=== PATIENT | female | born 1975 | race Caucasian/White ===

== ENCOUNTER → 2018-08-15 | Outpatient (CLI) | payer OTHER ==
[~2018-08-15] MED LIST: ABAT250V; ACET325; AMIT50; AMOX500 PO; ASPI325; ATIVAN PO; ATOM10; AZIT100SU; AZIT250 PO; Allergy Medicat25 MG PO; BENADRYL 25MG; BENZ1 PO; BENZ2 PO; CEPH500 PO; CLON.1 PO; CLON.2; CLON.5; CODACE30 PO; CODGUAEL PO; COGENTIN; CRUTCH4 USE; CYCL10 PO; DEPAKOTE PO; DIPH50 PO; DOCU100 PO; DOXY100; DOXY100 PO; FAMO20 PO; FLUO20; FLUP1; GAS RELIEF PO; GREEN TEA; HALO1; HALO5 PO; HYDACE25S PR; HYDACE5 PO; HYDACE7.5; HYDACE7.5 PO; HYDCHLSU PO; HYDCOR2.5C PR; HYDHCL25 PO; HYDPAM50 PO; HYOS.125 SL; Haloperidol2 MG PO; IBUP100S; IBUP200; IBUP600; IBUP800 PO; INVEGA SUS234 MG/1.5 IM; LAMICTAL 200 MG; LAMO25; LITH300CA; LORA1 PO; Lamotrigine100 MG; METR500 PO; MIRALAX17 GM; MIRT15ST; NAPR500 PO; NEFAZODONE; NICO21TP; NICOTINE LOZENGE2 MG; NITR100CA PO; OLAN10A MM; OMEPRAZOLE MAGN20 MG PO; ONDA4 PO; ONDA4ODT; ONDA4ODT MM; OXYACE5T PO; Omeprazole20 M1; PALI3TAB; PHENA100 PO; PRAZ1 PO; PRAZ2 PO; PROACE100 PO; PROM25 PO; PROP20; QUET200; QUET200 PO; QUET300; RANI150 PO; RXNAPNA550 PO; RXOXYACE PO; RXPROACE PO; SAPHRIS10 MG SL; SEROQUEL; SIME40L; SULTRIDS PO; TAMS.4ER; Trileptal300 MG PO; URICALM; VENL37.5; VENL75; ZIPR20 PO; ZIPR60; ZYPREXA; Zoloft25 MG PO; [UNRECOGNIZED DRUG - REMARK]
== END | disposition home or self-care (01) ==
LOC: LAB EV 16:55 → LAB SHORT 16:55
DX: N39.0 Urinary tract infection, site not specified (principal)
CPT/HCPCS: 87077; 87086; 87186

== ENCOUNTER → 2019-06-12 | Outpatient (CLI) | payer OTHER ==
[~2019-06-12] MED LIST changes: +PROP10
== END | disposition home or self-care (01) ==
LOC: LAB EV 11:07 → LAB SHORT 11:07
DX: N39.0 Urinary tract infection, site not specified (principal)
CPT/HCPCS: 87086

== ENCOUNTER 2021-07-29 09:18 | Emergency (ER) | payer OTHER ==
[~2021-07-29] VITALS: Ht 165.1 cm; Wt 95.2 kg
[~2021-07-29 09:18] MED LIST changes: +INVEGA PO; +Oxybutynin Chlor5 M1 PO; +PRAZOSIN HCL1 M2 PO
[2021-07-29] MEDS ORDERED: NEURONTIN300 MG PO (09:33)
[2021-07-29] MEDS ORDERED: ZALE10 PO (09:33)
[2021-07-29] MEDS ORDERED: ATORVASTATIN CA20 MG PO (09:34)
[2021-07-29] MEDS ORDERED: METFORMIN HCL500 M2 PO (09:34)
[2021-07-29] MEDS ORDERED: PANTOPRAZOLE SO40 M2 PO (09:35)
[2021-07-29 09:58] LABS: BASOPHILS ABSOLUTE AUTO 0.04 K/mm3 (0.00-0.23); BASOPHILS PERCENT AUTO 0 % (0-2); EOSINOPHILS ABSOLUTE AUTO 0.01 K/mm3 (0.00-0.68); EOSINOPHILS PERCENT AUTO 0 % (0-6); Hematocrit 45.1 % (33.0-51.0); Hemoglobin 15.9 g/dL (11.5-16.0); IMMATURE GRAN ABSOLUTE AUTO 0.06 K/mm3 (0.00-0.10); IMMATURE GRAN PERCENT AUTO 1 % (0-1); LYMPHOCYTES ABSOLUTE AUTO 2.07 K/mm3 (0.84-5.20); LYMPHOCYTES PERCENT AUTO 18 % (21-46); MONOCYTES ABSOLUTE AUTO 0.66 K/mm3 (0.16-1.47); MONOCYTES PERCENT AUTO 6 % (4-13); Mean Corpuscular HGB 30.9 pg (26.0-34.0); Mean Corpuscular HGB Conc 35.3 g/dL (31.5-36.5); Mean Corpuscular Volume 88 fL (80-100); NEUTROPHILS ABSOLUTE AUTO 8.64 K/mm3 (1.96-9.15); NEUTROPHILS PERCENT AUTO 75 % (41-73); Platelet Count 260 K/mm3 (150-400); RDW Coefficient Variation 13.2 % (11.7-14.2); RDW Standard Deviation 42.8 fL (35.1-46.3); Red Blood Cell Count 5.14 M/mm3 (3.80-5.20); White Blood Cell Count 11.48 K/mm3 (4.00-11.30)
[2021-07-29 10:16] LABS: Alanine Aminotransfer (ALT/SGP 26 U/L (12-78); Albumin, Blood 3.6 g/dL (3.4-5.0); Albumin/Globulin Ratio 0.8 (0.8-1.8); Alk Phos 97 U/L (50-136); Anion Gap 10 mmol/L (6-16); Aspartate Aminotrans (AST/SGOT 23 U/L (12-37); Bilirubin, Total 0.4 mg/dL (0.1-1.0); Blood Urea Nitrogen 5 mg/dL (8-24); Bun/Creatinine Ratio 7.7 (12.0-20.0); CO2, Blood 19 mmol/L (21-32); Calcium, Blood 9.9 mg/dL (8.5-10.1); Chloride, Blood 111 mmol/L (98-108); Creatinine, Blood 0.65 mg/dL (0.40-1.00); Globulin, Blood 4.5 g/dL (2.2-4.0); Glomerular Filtration Rate >60 (60-); Glucose, Blood 153 mg/dL (70-99); Potassium, Blood 3.5 mmol/L (3.5-5.5); Sodium, Blood 140 mmol/L (136-145); Total Protein, Blood 8.1 g/dL (6.4-8.2)
[2021-07-29 11:22] LABS: Influenza A Negative (NEGATIVE); Influenza B Negative (NEGATIVE)
[2021-07-29 11:53] LABS: Source, Urine Clean Catch
[2021-07-29 12:00] LABS: Bilirubin, Urine Neg (Neg); Blood, Urine Neg (Neg); Glucose Qualitative, Urine Neg (Neg); Ketones, Urine 1+ (Neg); Leukocyte Esterase, Urine 1+ (Neg); Nitrite, Urine Neg (Neg); Protein, Urine 1+ (Neg); Urobilinogen, Urine NORM (Normal)
[2021-07-29 12:11] LABS: Appearance, Urine Hazy (Clear); Bacteria Mod /hpf; Color, Urine Yellow (P-Yellow); Red Blood Cells, Urine Not Seen /hpf (0-2); Squamous Epithelial Cells Few /hpf (Few)
[2021-07-29 12:12] LABS: Mucus Light (0-Heavy)
[2021-07-29] MEDS ORDERED: AMOCLA875 PO (13:27)
[2021-07-29] MEDS ORDERED: ONDA4ODT MM (13:27)
== END 2021-07-29 13:53 | disposition home or self-care (01) ==
LOC: ER 09:18
PROVIDERS: Emergency Medicine
DX: J18.9 Pneumonia, unspecified organism (principal); R11.2 Nausea with vomiting, unspecified; F17.210 Nicotine dependence, cigarettes, uncomplicated; Z88.2 Allergy status to sulfonamides; Z88.8 Allergy status to other drugs, medicaments and biological substances; Z79.899 Other long term (current) drug therapy
CPT/HCPCS: 36415; 71045; 80053; 81001; 85025; 87077; 87086; 87186; 87804; 96374; 96375; 99284-25; A9270; J1885; J2765; J7030

== ENCOUNTER → 2022-03-03 | Outpatient (CLI) | payer OTHER ==
[~2022-03-03] MED LIST changes: +AMOCLA875 PO; +ATORVASTATIN CA20 MG PO; +METFORMIN HCL500 M2 PO; +NEURONTIN300 MG PO; +PANTOPRAZOLE SO40 M2 PO; +ZALE10 PO
== END | disposition home or self-care (01) ==
LOC: LAB SHORT 15:15 → LAB 15:15
DX: N39.0 Urinary tract infection, site not specified (principal); B96.29 Other Escherichia coli [E. coli] as the cause of diseases classified elsewhere; Z16.12 Extended spectrum beta lactamase (ESBL) resistance
CPT/HCPCS: 87086

== ENCOUNTER → 2023-03-16 | Outpatient (CLI) | payer OTHER | END | disposition home or self-care (01) | LOC: LAB SHORT 16:47 → LAB 16:47 | DX: R30.0 Dysuria (principal) | CPT/HCPCS: 87077; 87086; 87186 ==

== ENCOUNTER 2024-08-01 12:49 | Observation (INO) | payer OTHER ==
[~2024-08-01] VITALS: Ht 165.1 cm; Wt 88.0 kg
[2024-08-01] MEDS ORDERED: NS 1,000 ML IV SCH ×2 (14:25→18:20)
[2024-08-01 14:35] LABS: BASOPHILS ABSOLUTE AUTO 0.05 K/mm3 (0.00-0.23); BASOPHILS PERCENT AUTO 0 % (0-2); EOSINOPHILS ABSOLUTE AUTO 0.07 K/mm3 (0.00-0.68); EOSINOPHILS PERCENT AUTO 1 % (0-6); Hematocrit 42.2 % (33.0-51.0); Hemoglobin 14.3 g/dL (11.5-16.0); IMMATURE GRAN ABSOLUTE AUTO 0.09 K/mm3 (0.00-0.10); IMMATURE GRAN PERCENT AUTO 1 % (0-1); LYMPHOCYTES ABSOLUTE AUTO 1.69 K/mm3 (0.84-5.20); LYMPHOCYTES PERCENT AUTO 15 % (21-46); MONOCYTES ABSOLUTE AUTO 0.72 K/mm3 (0.16-1.47); MONOCYTES PERCENT AUTO 6 % (4-13); Mean Corpuscular HGB 29.9 pg (26.0-34.0); Mean Corpuscular HGB Conc 33.9 g/dL (31.5-36.5); Mean Corpuscular Volume 88 fL (80-100); Mean Platelet Volume 9.6 fL (9.1-12.4); NEUTROPHILS ABSOLUTE AUTO 8.93 K/mm3 (1.96-9.15); NEUTROPHILS PERCENT AUTO 77 % (41-73); Platelet Count 255 K/mm3 (150-400); RDW Coefficient Variation 13.8 % (11.7-14.2); RDW Standard Deviation 44.8 fL (35.1-46.3); Red Blood Cell Count 4.79 M/mm3 (3.80-5.20); White Blood Cell Count 11.55 K/mm3 (4.00-11.30)
[2024-08-01 14:53] LABS: Alanine Aminotransfer (ALT/SGP 15 U/L (12-78); Albumin, Blood 3.9 g/dL (3.4-5.0); Albumin/Globulin Ratio 1.1 (0.8-1.8); Alk Phos 94 U/L (50-136); Anion Gap 11 mmol/L (3-11); Aspartate Aminotrans (AST/SGOT 14 U/L (12-37); Bilirubin, Total 0.3 mg/dL (0.1-1.0); Blood Urea Nitrogen 2 mg/dL (8-24); Bun/Creatinine Ratio 2.6 (12.0-20.0); CO2, Blood 24 mmol/L (21-32); Calcium, Blood 9.5 mg/dL (8.5-10.1); Chloride, Blood 104 mmol/L (98-108); Creatinine, Blood 0.78 mg/dL (0.40-1.00); Ethanol (Alcohol), Blood, Med <3 mg/dL; Globulin, Blood 3.5 g/dL (2.2-4.0); Glomerular Filtration Rate 94 (60-); Glucose, Blood 117 mg/dL (70-99); Potassium, Blood 4.1 mmol/L (3.5-5.5); Sodium, Blood 135 mmol/L (136-145); Total Protein, Blood 7.4 g/dL (6.4-8.2)
[2024-08-01 14:57] LABS: U Amphetamine Screen Not Detected; U Barbituate Screen Not Detected; U Benzodiazapine Screen DETECTED; U Buprenorphine Screen Not Detected; U Cannabinoids Screen Not Detected; U Cocaine Screen Not Detected; U Methadone Screen Not Detected; U Methamphetamine Screen Not Detected; U Opiates Screen Not Detected; U Oxycodone Screen Not Detected; U Phencyclidine Screen Not Detected
[2024-08-01 17:59] LABS: PCO2 Arterial 42.5 mmHg (35-45); PO2 Arterial 80.1 mmHg (80-100); pH Blood Arterial 7.37 (7.35-7.45)
[2024-08-01] MEDS ORDERED: Ondansetron HCl 2 MG / ML 2ML Vial IV PRN (18:25)
[2024-08-01 18:53] LABS: Source, Urine Clean Catch
[2024-08-01 18:55] LABS: Adenovirus Not Detected (NOT DETECT); Bordetella pertussis Not Detected (NOT DETECT); Chlamydophila pneumoniae Not Detected (NOT DETECT); Coronavirus 229E Not Detected (NOT DETECT); Coronavirus HKU1 Not Detected (NOT DETECT); Coronavirus NL63 Not Detected (NOT DETECT); Coronavirus OC43 Not Detected (NOT DETECT); Human Metapneumovirus Not Detected (NOT DETECT); Human Rhinovirus/Enterovirus Detected (NOT DETECT); Influenza A/2009-H1 Not Detected (NOT DETECT); Influenza A/H1 Not Detected (NOT DETECT); Influenza A/H3 Not Detected (NOT DETECT); Influenza B Not Detected (NOT DETECT); Mycoplasma pneumoniae Not Detected (NOT DETECT); Parainfluenza Virus 1 Not Detected (NOT DETECT); Parainfluenza Virus 2 Not Detected (NOT DETECT); Parainfluenza Virus 3 Not Detected (NOT DETECT); Parainfluenza Virus 4 Not Detected (NOT DETECT); Respiratory Syncytial Virus Not Detected (NOT DETECT); SARS-Cov-2 (COVID-19), BioFire Not Detected (NOT DETECT)
[2024-08-01 18:57] LABS: Appearance, Urine Clear (Clear); Bilirubin, Urine Neg (Neg); Blood, Urine Neg (Neg); Color, Urine Yellow (P-Yellow); Glucose Qualitative, Urine Neg (Neg); Ketones, Urine Neg (Neg); Leukocyte Esterase, Urine Neg (Neg); Nitrite, Urine Neg (Neg); Protein, Urine Neg (Neg); Specific Gravity, Urine 1.005 (1.003-1.022); Urobilinogen, Urine NORM (Normal)
[2024-08-01 20:54] VITALS: BP 105/64
--- NOTE | 2024-08-01 21:00 | NUR ---
ADMISSION PATIENT ARRIVED TO PCU 17 VIA STRETCHER. PATIENT IS WEAK AND UNSTEADY ON HER FEET, REQUIRING ASSISTANCE TO TRANSFER TO THE BED TO PREVENT FALLS. SOON THE PATIENT WAS SETTLED INTO BED SHE WAS ASKING IF SHE WAS ABLE TO GO HOME, PATIENT REPORTS BEING ANXIOUS LEAVING HER DOG AT HOME. THIS RN EXPLAINED TO THE PATIENT THAT SHE IS TOO WEAK TO SAFELY GO HOME RIGHT NOW AND THAT THE PATIENT IS STILL REQUIRING OXYGEN TO MAINTAIN HER SPO2 >90% AND THAT IT WOULD BE ILLADVISED TO LEAVE. PATIENT NOT ATTEMPTING TO LEAVE AT THIS TIME. SHE IS ALERT AND ORIENTED X4. DENIES PAIN OR SHORTNESS OF BREATH. PATIENT ARRIVED ON 8 LITERS O2 VIA NC AT 100% SPO2, TITRATED DOWN TO 2 LITERS VIA NC. DURING ASSESSMENT PATIENT BECAME VERY DROWSY AND STARTED FALLING ASLEEP MID CONVERSATION. WILL CONTINUE TO MONITOR. CALL LIGHT WITHIN REACH.
[2024-08-01 21:11] LABS: Base Excess Venous 0.4 mmol/L; Bicarbonate Venous 24.4 mmol/L (24.0-30.0); PCO2 Venous 43.9 mmHg (38-42)
[2024-08-01 21:12] LABS: pH Blood Venous 7.38 (7.34-7.37)
[2024-08-01] MEDS ORDERED: BUPR100ER PO (23:09)
[2024-08-01] MEDS ORDERED: LORAZEPAM0.5 MG PO (23:10)
[2024-08-01] MEDS ORDERED: DULOXETINE HCL60 M1 PO (23:11)
[2024-08-01] MEDS ORDERED: LAMOTRIGINE100 M1 PO (23:12)
[2024-08-01] MEDS ORDERED: TOPI50 PO (23:49)
[2024-08-01] MEDS ORDERED: ZOLP5 PO (23:50)
[2024-08-02] MEDS ORDERED: Insulin Human Lispro 100 Units/ML 3ML Syringe SC SCH
[2024-08-02 00:12] VITALS: BP 103/50
--- NOTE | 2024-08-02 01:00 | NUR ---
ATTEMPTED AMA THIS RN WENT TO TAKE THE PATIENT'S MIDNIGHT VITALS AND BLOOD SUGAR. THE PATIENT WOKE UP EASILY AND STARTED ASKING IF SHE COULD GO HOME AND BE WITH HER DOG. THIS RN EXPLAINED TO THE PATIENT AGAIN THE SAME REASONS EARLIER WHY IT WOULD NOT BE GOOD FOR HER TO GO HOME. THE PATIENT INSISTED SHE WAS FEELING WELL ENOUGH AND WOULD LIKE TO TRY. THE PATIENT WAS ONLY ON 1 LITER O2 VIA NASAL CANULA AND SATING AROUND 95% THIS RN TURNED OFF THE OXYGEN TO SEE HOW SHE WOULD DO. THE PATIENT DID NOT DESAT AND WANTED TO TRY AND WALK AROUND THE ROOM TO SEE HOW SHE WOULD DO. THE PATIENT WAS ABLE TO AMBULATE TO THE BATHROOM AND GET HERSELF DRESSED AND SAID SHE WANTED TO CALL SOMEONE TO COME GET HER. HEALTH CARE SPECIALIST, HERRERA, AND DR RICK NOTIFIED. DR RICK CAME TO PATIENT'S BEDSIDE AND WENT OVER RISKS VS. BENEFITS OF LEAVING AMA. PATIENT THEN ATTEMPTED TO CALL SEVERAL FRIENDS BUT WAS UNABLE TO FIND A RIDE AND ULTIMATELY FELL BACK ASLEEP. WILL CONTINUE TO MONITOR. CALL LIGHT WITHIN REACH.
[2024-08-02 02:47] LABS: BASOPHILS ABSOLUTE AUTO 0.03 K/mm3 (0.00-0.23); BASOPHILS PERCENT AUTO 0 % (0-2); EOSINOPHILS PERCENT AUTO 2 % (0-6); Hematocrit 39.9 % (33.0-51.0); Hemoglobin 13.2 g/dL (11.5-16.0); IMMATURE GRAN ABSOLUTE AUTO 0.05 K/mm3 (0.00-0.10); IMMATURE GRAN PERCENT AUTO 1 % (0-1); LYMPHOCYTES ABSOLUTE AUTO 2.05 K/mm3 (0.84-5.20); LYMPHOCYTES PERCENT AUTO 20 % (21-46); MONOCYTES PERCENT AUTO 7 % (4-13); Mean Corpuscular HGB 29.8 pg (26.0-34.0); Mean Corpuscular HGB Conc 33.1 g/dL (31.5-36.5); Mean Corpuscular Volume 90 fL (80-100); Mean Platelet Volume 9.2 fL (9.1-12.4); NEUTROPHILS ABSOLUTE AUTO 7.19 K/mm3 (1.96-9.15); NEUTROPHILS PERCENT AUTO 70 % (41-73); Platelet Count 222 K/mm3 (150-400); RDW Coefficient Variation 14.3 % (11.7-14.2); RDW Standard Deviation 47.6 fL (35.1-46.3); Red Blood Cell Count 4.43 M/mm3 (3.80-5.20); White Blood Cell Count 10.22 K/mm3 (4.00-11.30)
[2024-08-02 02:48] LABS: Bicarbonate Venous 23.2 mmol/L (24.0-30.0); PCO2 Venous 34.7 mmHg (38-42); pH Blood Venous 7.42 (7.34-7.37)
[2024-08-02 03:11] LABS: Albumin, Blood 3.3 g/dL (3.4-5.0); Bilirubin, Total 0.4 mg/dL (0.1-1.0); Bun/Creatinine Ratio 2.8 (12.0-20.0); Calcium, Blood 9.1 mg/dL (8.5-10.1); Creatinine, Blood 0.71 mg/dL (0.40-1.00); Globulin, Blood 3.4 g/dL (2.2-4.0); Magnesium, Blood 2.7 mg/dL (1.6-2.4); Potassium, Blood 3.7 mmol/L (3.5-5.5); Total Protein, Blood 6.7 g/dL (6.4-8.2)
[2024-08-02 05:25] VITALS: BP 108/79
[2024-08-02] MEDS ORDERED: Pantoprazole Sodium 40 MG Injection IV SCH (06:00)
--- NOTE | 2024-08-02 06:07 | NUR ---
SHIFT SUMMARY PATIENT HAS NOT ASKED TO LEAVE SINCE LAST NOTE. SHE HAS BEEN LETHARGIC AND DROWSY AND UNSTEADY ON HER FEET, REQUIRING ASSISTANCE WHEN GETTING UP TO THE COMMODE. PATIENT CONTINUES ON ROOM AIR WITH SPO2 >90%. VITAL SIGNS STABLE. WILL CONTINUE TO MONITOR. CALL LIGHT WITHIN REACH.
--- NOTE | 2024-08-02 06:54 | NUR ---
AMA PATIENT WOKE UP THIS MORNING AGAIN ASKING TO LEAVE AGAINST MEDICAL ADVICE. THIS RN AGAIN REMINDED PATIENT OF THE RISKS THE DOCTOR HAD PREVIOUSLY GONE OVER WITH HER. PATIENT STATED SHE UNDERSTOOD THE RISKS AND STILL DESIRED TO GO HOME AND SIGNED THE AMA PAPERWORK. PATIENT CALLED A FRIEND WHO AGREED TO PICK HER UP. IV AND TELEMETRY REMOVED AND PATIENT WALKED OUT TO THE ER ENTRANCE.
[2024-08-02] MEDS ORDERED: Enoxaparin 40 MG/0.4 ML SYR SC SCH (09:00)
== END 2024-08-02 06:45 | disposition left against medical advice (07) ==
LOC: ER 12:49 → PCU 12:50 → ERHOLD 12:50 → PCU 20:39
PROVIDERS: Nurse Practitioner Acute Care; Student in an Organized Health Care Education/Training Program; ADMIT Student in an Organized Health Care Education/Training Program
DX: G92.8 Other toxic encephalopathy (principal); J96.01 Acute respiratory failure with hypoxia; D72.829 Elevated white blood cell count, unspecified; E11.9 Type 2 diabetes mellitus without complications; E78.5 Hyperlipidemia, unspecified; K21.9 Gastro-esophageal reflux disease without esophagitis; K51.90 Ulcerative colitis, unspecified, without complications; Q61.3 Polycystic kidney, unspecified; F31.9 Bipolar disorder, unspecified; F17.210 Nicotine dependence, cigarettes, uncomplicated; Z79.84 Long term (current) use of oral hypoglycemic drugs; Z79.899 Other long term (current) drug therapy; Z88.2 Allergy status to sulfonamides; Z88.8 Allergy status to other drugs, medicaments and biological substances; Z90.49 Acquired absence of other specified parts of digestive tract; Z90.710 Acquired absence of both cervix and uterus
CPT/HCPCS: 0202U; 36600; 70450; 71045; 80053; 80320; 81003; 81025; 82140; 82375; 82803; 82947; 83735; 84439; 84443; 85025; 93005; 93010; 94762; 96360; 96361; 96374; 99285-25; A9270; G0378; J2470; J7030